=== PATIENT | male | born 1960 | race Caucasian/White ===

== ENCOUNTER 2020-04-26 12:27 | Inpatient (IN) | payer MEDICAID ==
[2020-04-26] VITALS (10 sets, daily range): BP systolic 125–234
[~2020-04-26] VITALS: Ht 177.8 cm; Wt 96.2 kg
--- NOTE | 2020-04-26 12:27 | NUR ---
Patient brought in by ambulance to the ED for a possible overdose, stated she found him on the floor today. Patient is non-verbal at this time, unresponsive to painful or verbal stimuli, breathing is rapid and shallow. Will continue to monitor.
--- NOTE | 2020-04-26 12:27 | NUR ---
RT at bedside suctioning the patient and collecting blood gas.
--- NOTE | 2020-04-26 12:27 | NUR ---
Placed in room 01 . Placed on compliance monitor, blood pressure machine and pulse oximeter. To gown for exam. Side rails up.
--- NOTE | 2020-04-26 12:28 | NUR ---
Dr Martínez at bedside examining patient
--- NOTE | 2020-04-26 12:30 | NUR ---
16 # FR Mccollum catheter with use of sterile technique. Immediate return of 200 cc urine noted. Bedside drainage bag placed below level of bladder. Urine sample collected and sent to lab. Pt tolerated procedure . Patient unable to toilet self.
[2020-04-26] MEDS ORDERED: NACL 0.9% 1,000 ML IV ONE (12:41)
--- NOTE | 2020-04-26 12:41 | NUR ---
Patient is taken to CT via gurney, in stable condition. ED RN at bedside during the procedure.
[2020-04-26] MEDS ORDERED: NALOXONE HCL 2 MG/2 ML SYR IVP ONE (12:45)
--- NOTE | 2020-04-26 12:55 | NUR ---
Patient is back from CT in stable condition.
[2020-04-26 12:57] LABS: BASOPHILS % (AUTO) 0.4 % (0.0-2.0); EOSINOPHILS # (AUTO) 0.1 K/uL (0.0-0.4); EOSINOPHILS % (AUTO) 0.5 % (0.0-4.0); HEMATOCRIT 46.8 % (36-54); HEMOGLOBIN 14.8 g/dL (14.0-18.0); LYMPHOCYTES % (AUTO) 8.3 % (20.5-51.5); MEAN CORPUSCULAR HEMOGLOBIN 29 pg (27-31); MEAN CORPUSCULAR HGB CONC 32 % (32-36); MEAN CORPUSCULAR VOLUME 90 fL (79.0-98.0); MONOCYTES # (AUTO) 0.9 K/uL (0.0-1.0); MONOCYTES % (AUTO) 7.3 % (1.7-9.3); NEUTROPHILS # (AUTO) 10.4 K/uL (1.8-7.7); NEUTROPHILS % (AUTO) 83.5 % (40.0-70.0); PLATELET COUNT (AUTO) 224 K/uL (130-430); RED BLOOD CELL COUNT(AUTO) 5.17 MIL/uL (4.2-6.2); RED CELL DISTRIBUTION WIDTH 16.4 % (9.0-15.0); WHITE BLOOD COUNT (AUTO) 12.4 K/uL (4.8-10.8)
[2020-04-26 13:14] LABS: INR 1.3 (0.80-1.20); PROTHROMBIN TIME 12.7 SECS (9.5-12.5)
[2020-04-26 13:15] LABS: ANION GAP 9 (5-15); CALCIUM 8.2 mg/dL (8.4-11.0); CHLORIDE 103 mmol/L (98-107); CREATININE 2.15 mg/dL (0.55-1.30); GLUCOSE 128 mg/dL (70-99); POTASSIUM 4.6 mmol/L (3.5-5.1); SODIUM SERUM 138 mmol/L (136-145); UREA NITROGEN, BLOOD 43 mg/dL (8-21)
[2020-04-26 13:16] LABS: GFR AFRICAN AMERICAN 40 mL/min (>90)
[2020-04-26 13:22] LABS: BILIRUBIN,URINE 1+ (NEGATIVE); BLOOD, URINE 1+ (NEGATIVE); CLARITY/URINE CLEAR (CLEAR); COLOR,URINE YELLOW (YELLOW); GLUCOSE,URINE NEGATIVE (NEGATIVE); KETONES,URINE NEGATIVE (NEGATIVE); LEUKOCYTE ESTERASE ,URINE NEGATIVE (NEGATIVE); NITRITE, URINE NEGATIVE (NEGATIVE); PH,URINE 5.5 (5.0-8.0); PROTEIN URINE 2+ (NEGATIVE)
[2020-04-26 13:26] LABS: WBC,URINE 0-3 /HPF (0-3)
[2020-04-26 13:27] LABS: BACTERIA,URINE FEW /HPF (None Seen)
[2020-04-26 13:30] LABS: ACETAMINOPHEN < 1 ug/mL (1-30); ALANINE AMINOTRANSFERASE 534 U/L (12-78); ALBUMIN 2.9 g/dL (3.4-4.8); AMYLASE 65 U/L (0-100); ASPARTATE AMINOTRANSFERASE 213 U/L (10-37); LIPASE 200 U/L (73-393); TOTAL BILIRUBIN 2.3 mg/dL (0.0-1.0)
[2020-04-26 13:31] LABS: ALCOHOL, BLOOD < 3 mg/dL (<10)
[2020-04-26 13:32] LABS: BARBITURATE, URINE NEGATIVE (NEG <=200); BENZODIAZEPINE, URINE NEGATIVE (NEG <=150); CANNABINOID, URINE POSITIVE (NEG <=50); COCAINE, URINE NEGATIVE (NEG <=150); METHAMPHETAMINES SCREEN,URINE POSITIVE (NEG <=500); OPIATE, URINE POSITIVE (NEG <=100); PHENCYCLIDINE SCREEN,URINE NEGATIVE (NEG <=25); UR TRICYCLIC ANTIDEPRESSANTS NEGATIVE (NEG <=300); URINE AMPHETAMINE POSITIVE (NEG <=500); URINE METHADONE NEGATIVE (NEG <=200); URINE OXYCODONE SCREEN NEGATIVE (NEG <=100); URINE PROPOXYPHENE SCREEN NEGATIVE (NEG <=300)
--- NOTE | 2020-04-26 13:39 | NUR ---
Spoke with Gia, patient's at [phone]. She stated, patient does not have any home medications, no prior medical history and no surgeries in the past.
[2020-04-26 13:58] LABS: CKMB RELATIVE INDEX 3.1 (0.0-2.9); CREATINE KINASE MB 20.2 ng/mL (0-3.6)
--- NOTE | 2020-04-26 14:09 | NUR ---
Patient's unresponsive to painful or verbal stimuli. Increased respiratory effort noted on Oxygen via NC.
--- NOTE | 2020-04-26 14:32 | NUR ---
security tech at bedside collecting blood specimen as ordered by Dr. Martínez. Patient tolerated the procedure well.
[2020-04-26] MEDS ORDERED: CLOPIDOGREL BISULFATE 75 MG TABLET PO ONE (15:30)
[2020-04-26] MEDS ORDERED: ASPIRIN 81 MG TAB.CHEW PO ONE (15:30)
--- NOTE | 2020-04-26 15:39 | NUR ---
Patient will be admitted to care of Dr. Lou. Admitted to Telemetry. Will go to room 104A. Belongings list completed. Complete and up to date summary report printed. SBAR report to be given at bedside with opportunity for questions.
--- NOTE | 2020-04-26 15:52 | NUR ---
ADMISSION NOTE Received patient from ER via demarco, received report from DEBBY JACKSON. Patient admitted with diagnosis of CHF/ALOC. Patient is unresponsive unable to follow instruction.
--- NOTE | 2020-04-26 15:55 | NUR ---
cardio consult called: for Dr. Kitty Lou, regarding CHF, ordered by Dr. Sharonda Lou, spoke with Diane
--- NOTE | 2020-04-26 15:57 | NUR ---
Neuro consult called: for Dr. Cowart, regarding ALOC, ordered by Dr. Lou, spoke with Dr. Supa Cowart stated he will be in later today or tomorrow
--- NOTE | 2020-04-26 17:45 | NUR ---
Note Received report from admit RN Meghan on pt for continuation of care at 1600. Pt non responsive except for deep stimuli. Pt has O2 on at 2L/nc and Nasal trumpet in right nares. Pt has IV in right AC and left AC - both saline locked. Pt has Mccollum catheter intact and patent - draining well. Pt has been unresponsive throughout shift. Dr Lou was called and notified that pt is foaming at the mouth, RR at 30 and HR at 125. Pt has problems breathing and use of accessory muscles. Pt starting to wake up and very restless and confused in bed. Attempting to go over side rails and pushing staff away. Order for transfer to ICU received and pt was transferred to ICU at this time. Report given to COTTON GIN YARD SUPERVISOR at this time. Order for restraints also received at this time.
--- NOTE | 2020-04-26 17:50 | NUR ---
Transfer to ICU Received report from endorsing RN. Pt noted with foaming at mouth and nasal trumpet in place. Noted pupils PERRLA but with eye deviation to left side then move side to side, unable to track. Pt is able to follow commands and noted to only move left side of body. Afebrile. Placed on 2L O2 via NC. Pt denies pain at this time. IVs in place with IVF. Pt noted with HTN SBP 170s. BLE with redness and impaired skin integrity. No other complaints at this time. Addendum: 04/26/20 at 2054 by Eloina Howard RN Pt also noted with no gag reflex upon oral and nasal suctioning.
--- NOTE | 2020-04-26 17:51 | NUR ---
Richard Nielsen informed regarding patient transfer to ICU
--- NOTE | 2020-04-26 18:00 | NUR ---
Dr. Oh called unit and requests pt to be intubated. Informed ER Dr. Martínez regarding Dr. Oh's request. MDs communicated to each other and state to not intubate the patient while he can follow commands and has O2 saturate above 94%. Dr. Oh made aware of pt's current situation and RN findings. New orders made for ABGs in 1 hr.
[2020-04-26] MEDS ORDERED: FOLIC ACID 1 MG, THIAMINE HCL 100 MG, MAGNESIUM SULFATE 1 GM, MVI 10 ML in NACL 0.9% 1,... IV SCH (18:15)
--- NOTE | 2020-04-26 18:30 | NUR ---
Calls returned from Dr. Cowart and Dr. Lou spoke with smelter charger.
--- NOTE | 2020-04-26 19:20 | NUR ---
Endorsed plan of care to scarrer RN. Pt remains lethargic but able to follow commands. No other signs of distress currently noted.
--- NOTE | 2020-04-26 19:30 | NUR ---
Received patient after report from dayshift nurse. Patient appears agitated, moving L leg and L arm but unable to move right upper and lower extremities. Able to follow simple commands and responding by nodding his head yes. Patient repositioned for comfort. BL AC IV sites patent and fluids infusing to L AC; no signs of infiltration noted. 2 L via Nasal canula in place and tolerating well. Mccollum catheter draining to gravity with yellow cloudy urine. Will continue to monitor patient as per unit protocol.
[2020-04-26] MEDS: 0.45% NACL 1,000 ML IV SCH (20:00)
--- NOTE | 2020-04-26 20:15 | NUR ---
ABG results within normal parameters; no action taken
--- NOTE | 2020-04-26 20:30 | NUR ---
Dr Cowart contacted; orders for stat CT head received; radiology department aware.
[2020-04-26] MEDS ORDERED: LABETALOL 100 MG/ 20ML VIAL IVP PRN (21:00)
--- NOTE | 2020-04-26 21:00 | NUR ---
Going to CT for head study via bed. Portable monitor in place.
[2020-04-26] MEDS ORDERED: LABETALOL 100 MG/ 20ML VIAL ONE (21:09)
--- NOTE | 2020-04-26 21:20 | NUR ---
Back from CT. Patient tolerated well. Connected to wall monitor and repositioned in bed for comfort.
[2020-04-26] MEDS: LORazepam 2 MG/ML VIAL IVP PRN (21:40)
--- NOTE | 2020-04-26 22:15 | NUR ---
DR Shaw BARCENAS NOTIFIED OF THE CT HEAD RESULTS.
--- NOTE | 2020-04-26 23:00 | NUR ---
DR TSANG UPDATED ON PT CONDITION AND ABG RESULTS GIVEN
[2020-04-27] VITALS (31 sets, daily range): BP systolic 129–172
[2020-04-27] MEDS: 0.45% NACL 1,000 ML IV SCH (01:40)
[2020-04-27] MEDS ORDERED: FOLIC ACID 1 MG, MVI 10 ML in NACL 0.9% 1,000 ML IV SCH (07:15)
[2020-04-27] MEDS ORDERED: THIAMINE HCL 100 MG, MAGNESIUM SULFATE 1 GM in NS 100 ML IV SCH (07:15)
--- NOTE | 2020-04-27 07:47 | NUR ---
Opening Notes Pt received from night RN using SBAR
[2020-04-27 08:58] LABS: BASOPHILS # (AUTO) 0.1 K/uL (0.0-0.2); BASOPHILS % (AUTO) 0.6 % (0.0-2.0); HEMATOCRIT 43.5 % (36-54); LYMPHOCYTES # (AUTO) 0.7 K/uL (1.0-5.5); LYMPHOCYTES % (AUTO) 5.8 % (20.5-51.5); MEAN CORPUSCULAR HEMOGLOBIN 29 pg (27-31); MEAN CORPUSCULAR HGB CONC 32 % (32-36); MEAN CORPUSCULAR VOLUME 90 fL (79.0-98.0); MONOCYTES # (AUTO) 0.9 K/uL (0.0-1.0); MONOCYTES % (AUTO) 7.2 % (1.7-9.3); NEUTROPHILS # (AUTO) 10.3 K/uL (1.8-7.7); NEUTROPHILS % (AUTO) 86.4 % (40.0-70.0); PLATELET COUNT (AUTO) 189 K/uL (130-430); RED BLOOD CELL COUNT(AUTO) 4.86 MIL/uL (4.2-6.2); RED CELL DISTRIBUTION WIDTH 16.4 % (9.0-15.0)
[2020-04-27 09:16] LABS: ALBUMIN 2.4 g/dL (3.4-4.8); CREATININE 2.17 mg/dL (0.55-1.30); POTASSIUM 4.9 mmol/L (3.5-5.1); TOTAL BILIRUBIN 2.5 mg/dL (0.0-1.0)
--- NOTE | 2020-04-27 09:44 | NUR ---
Informed Dr. Cowart that MRI is not available today, if needed pt would need to be transferred out. Dr. Cowart is ok with pt getting an MRI on Tuesday.
--- NOTE | 2020-04-27 09:44 | NUR ---
Nutrition Update Orlando scale 13 noted. Pt admitted for congestive heart failure, ALOC Diet:No Diet Order BMI: 30.4 kg/m2 RD to follow per nutrition care standards.
--- NOTE | 2020-04-27 10:45 | NUR ---
1045 ASSISTED INTUBATION BY MD WHITLEY. ETT 7.5 AT LIP LINE. CO2 DETECTOR CHANGED YELLOW. BILATERAL BREATH SOUNDS NOTED. 1050 PT ON VENT, SETTINGS WITH AC14, VT500, PEEP+5, FIO2 50%. VENT TO RED OUTLET AND ALARMS ARE AUDIBLE.
--- NOTE | 2020-04-27 10:45 | NUR ---
Intubation Pt intubated by Dr. Oh, pt placed on vent. will continue to monitor
--- NOTE | 2020-04-27 11:06 | NUR ---
Family Spoke to pt's Gia and provided current update on pts condition, all questions answered at this time.
[2020-04-27] MEDS: PROPOFOL DRIP 100 ML IV PRN (11:40)
--- NOTE | 2020-04-27 11:40 | NUR ---
Witnessed RN initiation of diprivan drip at 5 mcg/kg/min
--- NOTE | 2020-04-27 11:55 | NUR ---
Witness diprivan drip titration to 10 mcg/kg/min
--- NOTE | 2020-04-27 12:00 | NUR ---
1200 TITRATED FIO2 DOWN TO 40% ABG RESULT, PO2 155.6. SPO2 97%, HR 130. WILL CONTINUE TO MONITOR PT.
--- NOTE | 2020-04-27 12:10 | NUR ---
Witness diprivan drip titration to 15 mcg/kg/min
[2020-04-27] MEDS ORDERED: HYDROcodone/ACETAMIN 5-325 MG TAB (NORCO/ VICODIN) NG PRN (13:15)
[2020-04-27] MEDS ORDERED: ONDANSETRON HCL 4 MG/2 ML VIAL IVP PRN (13:15)
[2020-04-27] MEDS ORDERED: D5/0.45 NS 1,000 ML IV SCH (13:15)
[2020-04-27] MEDS ORDERED: LORazepam 2 MG/ML VIAL IVP PRN (13:15)
[2020-04-27] MEDS ORDERED: PANTOPRAZOLE SODIUM 40 MG/VIAL (PROTONIX) IVP ONE (13:30)
--- NOTE | 2020-04-27 13:35 | NUR ---
EEG arcade technician at bedside.
--- NOTE | 2020-04-27 14:21 | NUR ---
New consults paged to Dr. Michael, Dr. Oquendo guest relations receptionist, and Dr. Valdez, spoke with exchange.
[2020-04-27] MEDS: DILTIAZEM HCL 25 MG/5 ML VIAL IVP PRN (15:00)
[2020-04-27] MEDS ORDERED: D5NS 1,000 ML IV SCH (17:00)
--- NOTE | 2020-04-27 17:05 | NUR ---
US semiconductor technician at bedside with pt.
--- NOTE | 2020-04-27 19:20 | NUR ---
Closing Notes Pt endorsed to night RN using SBAR, all questions answered at this time.
--- NOTE | 2020-04-27 19:25 | NUR ---
Opening Note: Received SBAR report from off coming RN for continuity of care. Pt resting in bed without any signs or symptoms of distress. Pt obtunded, responding to painful stimuli. Pt intubated with ETT 7.5, lip line 23, on a ventilator with AC mode 14, FiO2 40%, TV 500, and PEEP of 5. Pt suctioned, and PO care provided. NG tube in place to the L) nare with Vital AF infusing @ 10 ml/hr. Pt has a 20 G PIV to L) AC with D5NS infusing @ 50 ml/hr and propofol gtt @ 15 mcg/min. Mccollum catheter in place and draining to gravity, malena urine. Pt repositioned for comfort and skin breakdown prevention. Will continue to monitor and asses.
[2020-04-27] MEDS: D5NS 1,000 ML IV SCH (20:50)
[2020-04-27] MEDS: PANTOPRAZOLE SODIUM 40 MG/VIAL (PROTONIX) IVP SCH (20:50)
--- NOTE | 2020-04-27 21:45 | NUR ---
DIPRIVAN DRIP TITRATION WITNESSED ABIGAIL JACKSON TITRATE DIPRIVAN DRIP TO 20 MCG/KG/MIN PER ORDERS. WILL CONTINUE TO MONITOR PT.
[2020-04-28] VITALS (34 sets, daily range): BP systolic 100–165
[2020-04-28] MEDS: PROPOFOL DRIP 100 ML IV PRN ×3 (05:27→16:51)
--- NOTE | 2020-04-28 06:31 | NUR ---
DR. Sharonda SMILEY MD MADE AWARE OF PT BLOOD CULTURE POSITIVE FOR GRAM + RODS. PER MD ORDER ID CONSULT WITH DR. ORELLANA AND GIVE 1 DOSE VANCOMYCIN PER PHARMACY.
[2020-04-28 06:52] LABS: BASOPHILS % (AUTO) 0.3 % (0.0-2.0); HEMATOCRIT 44.3 % (36-54); HEMOGLOBIN 13.9 g/dL (14.0-18.0); LYMPHOCYTES # (AUTO) 0.8 K/uL (1.0-5.5); LYMPHOCYTES % (AUTO) 5.5 % (20.5-51.5); MEAN CORPUSCULAR HEMOGLOBIN 28 pg (27-31); MEAN CORPUSCULAR HGB CONC 31 % (32-36); MEAN CORPUSCULAR VOLUME 91 fL (79.0-98.0); MONOCYTES # (AUTO) 1.3 K/uL (0.0-1.0); MONOCYTES % (AUTO) 9.1 % (1.7-9.3); NEUTROPHILS % (AUTO) 85.1 % (40.0-70.0); PLATELET COUNT (AUTO) 147 K/uL (130-430); RED BLOOD CELL COUNT(AUTO) 4.89 MIL/uL (4.2-6.2); RED CELL DISTRIBUTION WIDTH 16.8 % (9.0-15.0); WHITE BLOOD COUNT (AUTO) 14.1 K/uL (4.8-10.8)
[2020-04-28 06:58] LABS: CALCIUM 7.8 mg/dL (8.4-11.0); CREATININE 2.36 mg/dL (0.55-1.30); POTASSIUM 4.8 mmol/L (3.5-5.1); TOTAL BILIRUBIN 1.9 mg/dL (0.0-1.0)
--- NOTE | 2020-04-28 07:20 | NUR ---
Closing note: Endorsed SBAR report to on coming RN for continuity of care.
--- NOTE | 2020-04-28 07:20 | NUR ---
Report received from MANUEL Santiago for continuation of care. Patient is resting in bed at this time. No acute signs or symptoms of distress noted.
--- NOTE | 2020-04-28 07:43 | NUR ---
CONSULT ID CONSULT MD: DR. ANTUNEZ SPOKE TO: SHABBIR DIALED: [phone] ORDERED BY: Sharonda MINOR
--- NOTE | 2020-04-28 08:20 | NUR ---
Dr. Frazier in to see patient.
[2020-04-28] MEDS: PANTOPRAZOLE SODIUM 40 MG/VIAL (PROTONIX) IVP SCH ×2 (08:46→21:06)
[2020-04-28] MEDS: LABETALOL 100 MG/ 20ML VIAL IVP PRN (08:46)
[2020-04-28] MEDS: VANCOMYCIN HCL 1,250 MG in NS 250 ML IV SCH (08:47)
--- NOTE | 2020-04-28 09:34 | NUR ---
nanotechnology technician states patient is too unstable for MRI at this time. He wants it cancelled until patient is stable.
--- NOTE | 2020-04-28 11:55 | NUR ---
Patient's called for update. She was updated and verbalized understanding.
--- NOTE | 2020-04-28 11:56 | NUR ---
SS NOTES: ENTRY LEVEL MANAGER was referred by CM/Nursing to see patient for DCP and possible overdose. ENTRY LEVEL MANAGER phoned spouse, Gia @ [phone] instead. Pt is a 59 y/o male who came in via ED for altered level of consciousness. Pt lives at home with in a one mercedes home with 2 steps to get to the front door. Pt is independent with his ADL's and no DME use. 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 Pt no longer has any source of income, and no unemployment benefit received. Pt does not have any history of mental health, and uses recreational drugs (marijuana and speed) for years. Pt also drinks 1 can of beer/night. If discharged to SNF, family prefers [facility], and no preference on [facility]. ENTRY LEVEL MANAGER will remain available when needed. ENTRY LEVEL MANAGER to provide substance use/unemployment resources.
--- NOTE | 2020-04-28 12:37 | NUR ---
Petr not available. Spoke with pharmacist who stated he will inform tech.
[2020-04-28] MEDS: cefTRIAXone 1 GM in D5W 50 ML IV SCH (12:48)
--- NOTE | 2020-04-28 13:11 | NUR ---
Dietitian Recommendations *Recommend: swallow eval. *Keep EN infusion rate at 40ml. Vital AF 1.2 at 40ml/hr (goal rate), Free Water Flush at 200ml Q6H via NGT Provides: 1152 kcal, 72gm protein and 1579ml fluids daily. Meets: 62% of estimated calorie needs and 96% of estimated protein needs. Please see Nutritional Assessment for details. PAUL, RD
[2020-04-28] MEDS: D5NS 1,000 ML IV SCH (15:28)
--- NOTE | 2020-04-28 19:10 | NUR ---
Report given to MANUEL Bedoya for continuation of care. No signs or symptoms of distress noted.
[2020-04-28] MEDS: MUPIROCIN 2% TOPICAL OINTMENT 22 GM NS SCH (21:06)
[2020-04-29] VITALS (33 sets, daily range): BP systolic 120–180
--- NOTE | 2020-04-29 06:00 | NUR ---
REMAINS ON DIPRIVAN DRIP AT 10 MCG/KG/MIN.TOLERATING TUBE FEEDING.TOLERATING VENT SETTING.VS-STABLE.AFEBRILE
[2020-04-29 06:14] LABS: BASOPHILS # (AUTO) 0.1 K/uL (0.0-0.2); BASOPHILS % (AUTO) 0.6 % (0.0-2.0); EOSINOPHILS # (AUTO) 0.1 K/uL (0.0-0.4); HEMATOCRIT 44.2 % (36-54); HEMOGLOBIN 14.1 g/dL (14.0-18.0); LYMPHOCYTES # (AUTO) 0.5 K/uL (1.0-5.5); LYMPHOCYTES % (AUTO) 4.7 % (20.5-51.5); MEAN CORPUSCULAR HEMOGLOBIN 29 pg (27-31); MEAN CORPUSCULAR HGB CONC 32 % (32-36); MEAN CORPUSCULAR VOLUME 90 fL (79.0-98.0); MONOCYTES # (AUTO) 0.9 K/uL (0.0-1.0); MONOCYTES % (AUTO) 8.4 % (1.7-9.3); NEUTROPHILS # (AUTO) 9.3 K/uL (1.8-7.7); NEUTROPHILS % (AUTO) 85.3 % (40.0-70.0); PLATELET COUNT (AUTO) 126 K/uL (130-430); RED BLOOD CELL COUNT(AUTO) 4.93 MIL/uL (4.2-6.2); RED CELL DISTRIBUTION WIDTH 16.7 % (9.0-15.0); WHITE BLOOD COUNT (AUTO) 10.9 K/uL (4.8-10.8)
[2020-04-29 06:36] LABS: ALBUMIN 1.7 g/dL (3.4-4.8); CALCIUM 7.3 mg/dL (8.4-11.0); CREATININE 1.94 mg/dL (0.55-1.30); PHOSPHORUS 3.6 mg/dL (2.7-4.5); POTASSIUM 4.4 mmol/L (3.5-5.1); TOTAL BILIRUBIN 1.4 mg/dL (0.0-1.0)
--- NOTE | 2020-04-29 07:30 | NUR ---
Received pt to assume care. Pt is sedated on vent and on diprivan at [address] on monitor rate 120. RR 20 with sats 96%. Lungs with crackles bilaterally. Small amount of mercer secretions suctioned from ET. Ng with tube feeding at 50 cc/hr. HOB up. KILLIAN PICC with IVF at 50 cc.hr. Vent settings AC 14/500/40/5. No distress. Mccollum with malena urine in bag. Will continue to monitor. Small sores with yellow pus noted on lower legs. Feet lifted off bed on pillows.
[2020-04-29 07:38] LABS: ERYTHROCYTE SEDIMENTATION RATE 4 MM/HR (0-15)
--- NOTE | 2020-04-29 08:10 | NUR ---
Dr. Frazier in to see pt. Orders left. Diprivan turned down to 5 mcgs.
--- NOTE | 2020-04-29 09:20 | NUR ---
RT NOTES ABG RESULTS REPORTED TO RN ADRIANNA. ALSO MADE AWARE THAT AIR LEAK WITH ETT CUFF. WILL CONTINUE MONITORING.
[2020-04-29 10:14] LABS: HEPATITIS A AB, IgM Negative (Negative); HEPATITIS B CORE AB, IgM Negative (Negative); HEPATITIS B SURFACE AG Negative (Negative)
[2020-04-29] MEDS: PANTOPRAZOLE SODIUM 40 MG/VIAL (PROTONIX) IVP SCH ×2 (10:58→21:27)
[2020-04-29] MEDS: VANCOMYCIN HCL 1,250 MG in NS 250 ML IV SCH (11:01)
[2020-04-29] MEDS: D5NS 1,000 ML IV SCH (11:02)
--- NOTE | 2020-04-29 11:55 | NUR ---
Urine in mistry bag noted to be lo/ red in color with sediment. Waiting for Dr. Lou to round to tell him.
[2020-04-29] MEDS: cefTRIAXone 1 GM in D5W 50 ML IV SCH (12:14)
[2020-04-29] MEDS: MUPIROCIN 2% TOPICAL OINTMENT 22 GM NS SCH ×2 (12:28→21:28)
[2020-04-29] MEDS: DILTIAZEM HCL 25 MG/5 ML VIAL IVP PRN (12:28)
--- NOTE | 2020-04-29 13:30 | NUR ---
Pt is tachypneic on vent with RR 38. HR 130's. 02 sats 95%. Diprivan increased to 10 mcgs. Will continue to monitor pt.
[2020-04-29] MEDS: PROPOFOL DRIP 100 ML IV PRN (14:20)
--- NOTE | 2020-04-29 15:00 | NUR ---
Call out to Dr. Lou to report bloody urine in bag.
--- NOTE | 2020-04-29 17:00 | NUR ---
Dr. Kitty Lou called in to inquire about pt. He said he is not covering for Dr. Dyana Lou and that he would be in to see the pt after the office.
--- NOTE | 2020-04-29 17:30 | NUR ---
Dr. Lou in to see pt. Informed him about bloody urine with sediment. Orders left for urology consult.
--- NOTE | 2020-04-29 19:10 | NUR ---
Dr. Herrera in to see pt. Irrigated bloody mistry and replaced it with a new one using a #12 cuday. Return of yellow urine. He said mistry was not in the correct spot.
--- NOTE | 2020-04-29 19:30 | NUR ---
Report given to oncoming shift to assume care of the patient.
--- NOTE | 2020-04-29 19:35 | NUR ---
OPENING NOTE: Received SBAR report from off coming RN. Questions were addressed.
[2020-04-29] MEDS: DILTIAZEM HCL 30 MG TABLET PO SCH (21:28)
--- NOTE | 2020-04-29 21:40 | NUR ---
DIPRIVAN TITRATION WITNESSED ABIGAIL JACKSON TITRATE DIPRIVAN DRIP TO 15 MCG/KG/MIN. WILL CONTINUE TO MONITOR.
[2020-04-29] MEDS: HYDROcodone/ACETAMIN 10-325 MG TAB NG PRN (22:27)
[2020-04-30] VITALS (31 sets, daily range): BP systolic 115–183
[2020-04-30] MEDS: PROPOFOL DRIP 100 ML IV PRN ×2 (02:21→21:36)
[2020-04-30] MEDS: D5NS 1,000 ML IV SCH (04:42)
[2020-04-30] MEDS: DILTIAZEM HCL 30 MG TABLET PO SCH ×3 (05:52→20:59)
--- NOTE | 2020-04-30 06:00 | NUR ---
DIPRIVAN TITRATION WITNESSED ABIGAIL JACKSON TITRATE DIPRIVAN DRIP TO 10 MCG/KG/MIN.
--- NOTE | 2020-04-30 06:30 | NUR ---
DIPRIVAN TITRATION WITNESSED ABIGAIL JACKSON TITRATE DIPRIVAN DRIP TO 5 MCG/KG/MIN. WILL CONTINUE TO MONITOR PT.
[2020-04-30 06:37] LABS: BASOPHILS # (AUTO) 0.1 K/uL (0.0-0.2); BASOPHILS % (AUTO) 0.8 % (0.0-2.0); EOSINOPHILS # (AUTO) 0.1 K/uL (0.0-0.4); EOSINOPHILS % (AUTO) 1.1 % (0.0-4.0); HEMATOCRIT 42.6 % (36-54); HEMOGLOBIN 13.6 g/dL (14.0-18.0); LYMPHOCYTES # (AUTO) 0.6 K/uL (1.0-5.5); LYMPHOCYTES % (AUTO) 6.1 % (20.5-51.5); MEAN CORPUSCULAR HEMOGLOBIN 29 pg (27-31); MEAN CORPUSCULAR HGB CONC 32 % (32-36); MEAN CORPUSCULAR VOLUME 90 fL (79.0-98.0); MONOCYTES # (AUTO) 0.7 K/uL (0.0-1.0); MONOCYTES % (AUTO) 7.2 % (1.7-9.3); NEUTROPHILS # (AUTO) 8.4 K/uL (1.8-7.7); NEUTROPHILS % (AUTO) 84.8 % (40.0-70.0); PLATELET COUNT (AUTO) 132 K/uL (130-430); RED BLOOD CELL COUNT(AUTO) 4.74 MIL/uL (4.2-6.2); RED CELL DISTRIBUTION WIDTH 16.6 % (9.0-15.0); WHITE BLOOD COUNT (AUTO) 9.9 K/uL (4.8-10.8)
[2020-04-30 06:46] LABS: ALBUMIN 1.6 g/dL (3.4-4.8); C-REACTIVE PROTEIN QUANT 9.2 mg/dL (0-0.5); CALCIUM 7.2 mg/dL (8.4-11.0); CREATININE 1.69 mg/dL (0.55-1.30); PHOSPHORUS 3.9 mg/dL (2.7-4.5); POTASSIUM 4.3 mmol/L (3.5-5.1); TOTAL BILIRUBIN 1.4 mg/dL (0.0-1.0)
--- NOTE | 2020-04-30 07:25 | NUR ---
CLOSING NOTE: Endorsed SBAR report to oncoming RN for continuity of care. Questions were addressed.
--- NOTE | 2020-04-30 08:00 | NUR ---
Opening Notes Patient received in bed at this time sedated and connected to cylinder press operator apprentice with NSR. Patient intubated and on ventilator with settings AC 14, tidal volume 500, FiO2 40%, and PEEP 5 with no signs of distress noted at this time. Patient with left nare NGT receiving tubefeeding. Patient has PICC line receiving fluids and diprivan at 5 mcg/kg/min. Safety precautions enforced.
[2020-04-30 08:29] LABS: ERYTHROCYTE SEDIMENTATION RATE 2 MM/HR (0-15)
[2020-04-30] MEDS: PANTOPRAZOLE SODIUM 40 MG/VIAL (PROTONIX) IVP SCH ×2 (09:30→20:56)
[2020-04-30] MEDS: FUROSEMIDE 20 MG/2 ML VIAL IVP SCH ×2 (09:31→20:58)
[2020-04-30] MEDS: MUPIROCIN 2% TOPICAL OINTMENT 22 GM NS SCH ×2 (09:31→21:14)
--- NOTE | 2020-04-30 10:00 | NUR ---
CHG CHG bath performed and linens changed. Patient tolerated well. No signs of distress noted.
[2020-04-30] MEDS: HYDROcodone/ACETAMIN 10-325 MG TAB NG PRN (10:39)
--- NOTE | 2020-04-30 12:00 | NUR ---
RN Rounds Patient in no signs of distress at this time. Safety precautions enforced.
[2020-04-30] MEDS: VANCOMYCIN HCL 1,250 MG in NS 250 ML IV SCH (12:13)
--- NOTE | 2020-04-30 13:00 | NUR ---
WOUND EVALUATION: Wound Consult received from Dr. Joshua Lou. Thank you Dr. Lou for the consult. Patient received in a [place] Bed with an IsoFlex GISSELLE mattress with low air-loss therapy initiated, intubated, ventilator dependent, sedated. Patient is unable to turn in bed independently. Orlando Score is a 13. Past Medical History: Hypertension, drug abuse. History of tobacco abuse, alcohol use and illicit drug use. Initial physician assessment impression: Acute Respiratory Failure, Altered Level of Consciousness, polysubstance drug overdose, Cerebrovascular Accident, Congestive Heart Failure Exacerbation, elevated troponin, Acute Non-ST Elevation, Myocardial Infarction, right-sided weakness, Leukocytosis, Acute Kidney Injury, Chronic Kidney Disease, Hypocalcemia, Hyperbilirubinemia, Transaminitis, Hypoalbuminemia. Recent Labs: WBC 9.9, RBC 4.74, hemoglobin 13.6, hematocrit 42.6, chloride 109, BUN 41, creatinine 1.69, GFR 44, glucose 143, serum total protein 5.1, albumin 1.6, PT 12.7, INR 1.3, PTT 24.5. Microbiology: MRSA screen results positive. Blood culture results in progress. Endotracheal culture results positive for MRSA.Intrinsic factors that delay wound healing: Congestive Heart Failure, Acute Kidney Injury, Chronic Kidney Disease, Hypoalbuminemia. Extrinsic factors that delay wound healing: Immobility. Wound Assessment: 1. Left Dorsal Foot at Anterior Ankle Joint Line: Chronic wound, present on admission. Wound bed bas 100% brown scab with dry, flaky skin. No odor, no drainage. Elyssa-wound intact. Wound measures 1.4 cm x 1.3 cm. 2. Left Dorsal Foot, distal to site 1: Chronic wound, present on admission. Wound bed bas 100% brown scab with dry, flaky skin. No odor, no drainage. Elyssa-wound intact. Wound measures 1.1 cm x 7.3 cm. Recommend: No dressings needed. Continue to monitor sites qshift. 3. Left Lower Extremity: Erythema with multiple, multiple red lesions, present on admission. No odor, no drainage, no weeping. Culture taken and sent to lab. 4. Right Lower Extremity: Erythema with multiple, multiple red lesions, present on admission. No odor, no drainage, no weeping. Culture taken and sent to lab. Recommend: No dressings needed. Continue to monitor sites qshift. 5. Right Second Toe: Chronic wound, present on admission. Wound bed bas 100% brown scab. No odor, no drainage. Elyssa-wound intact. Wound measures 0.5 cm x 0.3 cm. Recommend: No dressing needed. Continue to monitor site qshift. Also recommend: Reposition patient every 2 hours with pillow support and off-load pressure areas with pillows for pressure re-distribution. Offload, elevate and float bilateral heels with one pillow lengthwise under each extremity at all times. Perform skin care and monitor skin integrity Q shift. Use moisture barrier cream on buttocks and other moisture susceptible areas QID and as needed for soiling. Maintain patient on a low air-loss mattress.
[2020-04-30] MEDS: cefTRIAXone 1 GM in D5W 50 ML IV SCH (13:32)
[2020-04-30] MEDS: LORazepam 2 MG/ML VIAL IVP PRN ×2 (15:44→20:55)
--- NOTE | 2020-04-30 16:00 | NUR ---
RN Rounds Patient in no signs of distress at this time. Safety precautions enforced.
--- NOTE | 2020-04-30 19:00 | NUR ---
PT RECEIVED AND REPORT AT BEDSIDE NO CHANGES IN ASSESSMENT
--- NOTE | 2020-04-30 19:19 | NUR ---
Closing Notes Patient endorsed to night stocker RN using SBAR format. Patient in no signs of distress at this time.
--- NOTE | 2020-04-30 20:55 | NUR ---
PAGED DR. WHITLEY PAGER # [phone]
--- NOTE | 2020-04-30 21:03 | NUR ---
DR. WHTIFIELD PT PLACED BACK ON AC MODE BY RT. MD MADE AWARE OF PT HR 134, SBP 180s, AND PT VERY RESTLESS AND AGITATED ON VENT. PER OKAY TO RESTART DIPRIVAN DRIP AT LOW DOSE. WILL CARRY OUT ORDERED.
[2020-05-01] VITALS (27 sets, daily range): BP systolic 104–180
[2020-05-01] MEDS: D5NS 1,000 ML IV SCH ×2 (02:41→23:00)
[2020-05-01] MEDS: DILTIAZEM HCL 30 MG TABLET PO SCH ×3 (05:37→23:00)
[2020-05-01 05:41] LABS: BASOPHILS # (AUTO) 0.1 K/uL (0.0-0.2); BASOPHILS % (AUTO) 0.5 % (0.0-2.0); EOSINOPHILS # (AUTO) 0.1 K/uL (0.0-0.4); EOSINOPHILS % (AUTO) 1.2 % (0.0-4.0); HEMATOCRIT 45.1 % (36-54); HEMOGLOBIN 14.3 g/dL (14.0-18.0); LYMPHOCYTES # (AUTO) 0.8 K/uL (1.0-5.5); MEAN CORPUSCULAR HEMOGLOBIN 28 pg (27-31); MEAN CORPUSCULAR HGB CONC 32 % (32-36); MEAN CORPUSCULAR VOLUME 90 fL (79.0-98.0); MONOCYTES % (AUTO) 8.9 % (1.7-9.3); NEUTROPHILS # (AUTO) 9.7 K/uL (1.8-7.7); NEUTROPHILS % (AUTO) 82.4 % (40.0-70.0); PLATELET COUNT (AUTO) 145 K/uL (130-430); RED BLOOD CELL COUNT(AUTO) 5.03 MIL/uL (4.2-6.2); RED CELL DISTRIBUTION WIDTH 16.7 % (9.0-15.0); WHITE BLOOD COUNT (AUTO) 11.8 K/uL (4.8-10.8)
[2020-05-01 05:49] LABS: C-REACTIVE PROTEIN QUANT 8.9 mg/dL (0-0.5); CALCIUM 7.2 mg/dL (8.4-11.0); CREATININE 1.45 mg/dL (0.55-1.30); PHOSPHORUS 3.4 mg/dL (2.7-4.5); POTASSIUM 4.2 mmol/L (3.5-5.1)
[2020-05-01 06:54] LABS: ERYTHROCYTE SEDIMENTATION RATE 2 MM/HR (0-15)
--- NOTE | 2020-05-01 08:00 | NUR ---
Opening Notes Patient received in bed connected to monitoring analyst with ST. Patient intubated and on ventilator at this time with settings AC 14, FiO2 40%, tidal volume 500, PEEP 5 breathing evenly and unlabored. Patient with left nare NGT receiving tubefeeding. Patient with SARAY PICC receiving fluids and diprivan at 5 mcg/kg/min. Patient with mistry catheter draining malena-colored urine. Safety and isolation precautions enforced.
[2020-05-01] MEDS: PANTOPRAZOLE SODIUM 40 MG/VIAL (PROTONIX) IVP SCH ×2 (09:15→20:16)
[2020-05-01] MEDS: MUPIROCIN 2% TOPICAL OINTMENT 22 GM NS SCH ×2 (09:16→20:09)
[2020-05-01] MEDS: FUROSEMIDE 20 MG/2 ML VIAL IVP SCH ×2 (09:16→20:16)
--- NOTE | 2020-05-01 09:41 | NUR ---
[address] COLE ORDER. PLACED ON 9L SIMPLE MASK. SAT 95% HR 126 RR 30. RN AWARE. WILL CONT. TO MONITOR.
[2020-05-01] MEDS: DILTIAZEM HCL 25 MG/5 ML VIAL IVP PRN ×2 (10:59→20:16)
[2020-05-01] MEDS: VANCOMYCIN HCL 1,250 MG in NS 250 ML IV SCH (11:21)
[2020-05-01] MEDS: LABETALOL 100 MG/ 20ML VIAL IVP PRN ×3 (12:12→20:15)
[2020-05-01] MEDS: cefTRIAXone 1 GM in D5W 50 ML IV SCH (14:27)
--- NOTE | 2020-05-01 17:25 | NUR ---
Nutrition F/U Admitting Diagnosis CHF, ALOC Medical History Comment: Pt found w/: Acute Respiratory Failure, ALOC, Polysubstance Drug Overdose, CVA, CHF exacerbation, Elevated Troponin, Acute NSTEMI, Right sided Weakness, Leukocytosis, LE, CKD, Hyperbilirubinemia, Transaminitis, Hypoalbuminemia per MD notes. Subjective Information Pt remains on isolation precautions for +MRSA, RD visit deferred for conservation of PPE. Pt is now extubated and on 9L simple mask. Leisure Travel Agent Note (04/30) reviewed, noted chronic wounds to the left dorsal foot, present on admission. RD s/w RN who reports pt is tolerating current TF regimen with no residuals. Current TF regimen meets 72% of lower end of calorie and 120% of protein estimated nutrition needs. Consider decreasing rate to 40ml/hr to better meet nutrition needs. Noted 1xBM on 04/30 and pt w/ +3 pitting edema to the BLE and BUE. Current Diet Order/Nutrition Support Vital AF 1.2 at 50ml/hr (goal rate), FWF 200ml via NGT x 4 days Provides: 1440 calories, 90g of protein, and 1773ml of total fluids Meets: 72% of lower end of calorie and 120% of protein estimated nutrition needs Pertinent Medications Vancomycin, Protonix IV, Zofran, Propofol Pertinent Labs 05/01 Na 141 WNL, K 4.2 WNL, BG 131 H, BUN 40 H, CRE 1.45 H NEW Estimated Energy Expenditure (kcals/day) 2808-1637 kcal/day (25-30kcal/kg based on AdjIBW for critical illness) Estimated Protein Required (g/day) 75gm/day (1gm/kg IBW for Renal Dz predialysis) Estimated Fluid Required (l/day) per MD (CHF) Problem/Etiology/Signs/Symptoms Excessive protein intake r/t current EN regimen AEB protein intake from EN regimen meets 120% of estimated protein needs. (*ongoing) Altered nutrition-related labs r/t renal dysfunction AEB elevated BUN and SCre lab values and Hx of Renal Disease. (*ongoing) Expected Outcomes/Goals Monitor EN support and advancement of diet by ST, intake w/ goal of pt meeting at least 75% of estimated nutritional needs, labs trending WNL, normal GI function, skin integrity/wt maintenance. Dietitian Recommendations *Recommend: swallow eval when medically feasible. *Consider decreasing to Vital AF 1.2 at 40ml/hr (goal rate), Free Water Flush at 200ml Q6H via NGT Provides: 1152 kcal, 72gm protein and 1579ml fluids daily. Meets: 58% of estimated calorie needs and 96% of estimated protein needs. Follow Up High Risk: F/U in 2-3days
--- NOTE | 2020-05-01 17:29 | NUR ---
Dietitian Recommendations *Recommend: swallow eval when medically feasible. *Consider decreasing to Vital AF 1.2 at 40ml/hr (goal rate), Free Water Flush at 200ml Q6H via NGT Provides: 1152 kcal, 72gm protein and 1579ml fluids daily. Meets: 58% of estimated calorie needs and 96% of estimated protein needs. Please see Nutrition F/U for further details. LT, RD
--- NOTE | 2020-05-01 19:30 | NUR ---
Opening Note Received plan of care via sbar from endorsing MANUEL Martínez.
--- NOTE | 2020-05-01 19:44 | NUR ---
Closing Notes Endorsed to facsimile operator RN using SBAR format. No signs of distress noted.
--- NOTE | 2020-05-01 20:20 | NUR ---
Patient observed tachypneic and breathing shallow with periods of apnea. SPO2 94. Patient has mercer colored sputum. Suctioned patient and checked residual and found 10 cc. Auscultated patient and heard rhonchi bilateral upper lobes and diminished lower lobes. RT used nasotracheal suction and suctioned 5 cc of thick pink sputum. Completed ABG 7.359 ph, 42.2 CO2, P02 88.2, HCO3 23.3, BE -2.2. Confirmed placement of NG tube via auscultation verified by [address] Geronimo and provided report. Received orders to stop feeding for now and place patient on Bipap 12/6 backup rate of 16.
[2020-05-01] MEDS: VANCOMYCIN HCL 1,000 MG in NS 250 ML IV SCH (23:01)
[2020-05-02] VITALS (26 sets, daily range): BP systolic 122–183
--- NOTE | 2020-05-02 01:00 | NUR ---
Opening Note Received report from MANUEL Wilder using SBAR approach.
--- NOTE | 2020-05-02 01:15 | NUR ---
Assessment Patient is on BIPAP with settings of IPAP 12 and EPAP 6 with no signs of distress noted at this time. Patient with left nare NGT receiving tubefeeding. Patient has PICC line receiving fluids. Bed locked in lowest position and safety protocols in place. Will continue to monitor the patient.
[2020-05-02] MEDS: DILTIAZEM HCL 30 MG TABLET PO SCH ×3 (05:12→22:02)
[2020-05-02 06:57] LABS: BASOPHILS % (AUTO) 0.3 % (0.0-2.0); EOSINOPHILS % (AUTO) 0.2 % (0.0-4.0); HEMATOCRIT 43.2 % (36-54); HEMOGLOBIN 13.7 g/dL (14.0-18.0); LYMPHOCYTES # (AUTO) 0.7 K/uL (1.0-5.5); LYMPHOCYTES % (AUTO) 6.6 % (20.5-51.5); MEAN CORPUSCULAR HEMOGLOBIN 28 pg (27-31); MEAN CORPUSCULAR HGB CONC 32 % (32-36); MEAN CORPUSCULAR VOLUME 90 fL (79.0-98.0); MONOCYTES # (AUTO) 1.1 K/uL (0.0-1.0); MONOCYTES % (AUTO) 9.6 % (1.7-9.3); NEUTROPHILS # (AUTO) 9.5 K/uL (1.8-7.7); NEUTROPHILS % (AUTO) 83.3 % (40.0-70.0); PLATELET COUNT (AUTO) 160 K/uL (130-430); RED BLOOD CELL COUNT(AUTO) 4.83 MIL/uL (4.2-6.2); RED CELL DISTRIBUTION WIDTH 16.4 % (9.0-15.0); WHITE BLOOD COUNT (AUTO) 11.4 K/uL (4.8-10.8)
[2020-05-02 07:22] LABS: ALBUMIN 1.7 g/dL (3.4-4.8); C-REACTIVE PROTEIN QUANT 7.6 mg/dL (0-0.5); CALCIUM 7.5 mg/dL (8.4-11.0); CREATININE 1.45 mg/dL (0.55-1.30); PHOSPHORUS 3.5 mg/dL (2.7-4.5); TOTAL BILIRUBIN 1.4 mg/dL (0.0-1.0)
--- NOTE | 2020-05-02 07:28 | NUR ---
Closing Note Endorsed report to AM nurse using SBAR approach.
--- NOTE | 2020-05-02 07:40 | NUR ---
Opening Notes Patient received tachypneic with notable use of accessory muscles and difficult to arouse with verbal and tactile stimuli. Patient with increased heart rate, medicated with PRN meds. Safety precautions enforced.
--- NOTE | 2020-05-02 08:00 | NUR ---
MD Rounds Dr. Frazier at bedside for examination. Per MD, patient needs intubation.
[2020-05-02] MEDS: LABETALOL 100 MG/ 20ML VIAL IVP PRN ×2 (08:06→23:06)
--- NOTE | 2020-05-02 08:35 | NUR ---
Intubation Patient intubated at this time by Dr. Frazier with ETT size 8, 23 cm at the lip. Vent settings AC 24, tidal volume 450, FiO2 100%, and PEEP 5. RT and 2 RNs at bedside present.
[2020-05-02] MEDS ORDERED: PROPOFOL DRIP 100 ML IV ONE (09:03)
--- NOTE | 2020-05-02 09:30 | NUR ---
RT Note: 0930 Titrated FiO2 down to 80% per ABG results. MANUEL Martínez notified. Addendum: 05/02/20 at 0957 by Amrita Yeager RT Amended: Links added.
[2020-05-02] MEDS ORDERED: ROCURONIUM BROMIDE 10 MG/ML (ZEMURON) IV ONE (09:42)
[2020-05-02] MEDS: PANTOPRAZOLE SODIUM 40 MG/VIAL (PROTONIX) IVP SCH ×2 (10:10→20:14)
[2020-05-02] MEDS: FUROSEMIDE 20 MG/2 ML VIAL IVP SCH ×2 (10:11→20:15)
[2020-05-02] MEDS: MUPIROCIN 2% TOPICAL OINTMENT 22 GM NS SCH ×2 (10:11→20:15)
[2020-05-02 10:13] LABS: ERYTHROCYTE SEDIMENTATION RATE 6 MM/HR (0-15)
[2020-05-02] MEDS: VANCOMYCIN HCL 1,000 MG in NS 250 ML IV SCH ×2 (10:16→22:02)
--- NOTE | 2020-05-02 11:00 | NUR ---
CHG CHG bath performed and linens changed. Patient tolerated well. Patient repositioned and orally suctioned with thick, white secretions out. Safety and isolation precautions observed.
--- NOTE | 2020-05-02 12:00 | NUR ---
RN Rounds Patient resting in bed at this time, currently being sedated. Patient in no signs of distress.
[2020-05-02] MEDS: cefTRIAXone 1 GM in D5W 50 ML IV SCH (13:33)
--- NOTE | 2020-05-02 16:00 | NUR ---
RN Rounds Patient sedated in bed with no signs of distress noted. Safety and isolation precautions enforced.
[2020-05-02] MEDS: PROPOFOL DRIP 100 ML IV PRN (17:03)
--- NOTE | 2020-05-02 19:37 | NUR ---
Closing Notes Patient endorsed to shift leader RN using SBAR format. No signs of distress noted.
--- NOTE | 2020-05-02 19:38 | NUR ---
Opening Note Received report from AM nurse using SBAR approach.
[2020-05-02] MEDS: D5NS 1,000 ML IV SCH (19:54)
--- NOTE | 2020-05-02 20:20 | NUR ---
Assessment Patient is intubated with settings AC 24 FiO2 80%, Tidal Volume 450 and PEEP 5 with no signs of distress noted at this time. Patient is on Diprivan running at 15 mcg. Patient has a left nare NGT receiving tubefeeding. Patient has PICC line receiving fluids. Bed locked in lowest position and safety protocols in place. Will continue to monitor the patient.
[2020-05-03] VITALS (36 sets, daily range): BP systolic 103–180
[2020-05-03] MEDS: LORazepam 2 MG/ML VIAL IVP PRN ×2 (01:21→06:14)
[2020-05-03] MEDS: LABETALOL 100 MG/ 20ML VIAL IVP PRN ×3 (03:46→23:17)
[2020-05-03] MEDS: PROPOFOL DRIP 100 ML IV PRN (03:58)
[2020-05-03] MEDS: DILTIAZEM HCL 30 MG TABLET PO SCH ×3 (05:09→21:11)
[2020-05-03 06:31] LABS: BASOPHILS # (AUTO) 0.1 K/uL (0.0-0.2); BASOPHILS % (AUTO) 0.7 % (0.0-2.0); EOSINOPHILS # (AUTO) 0.1 K/uL (0.0-0.4); EOSINOPHILS % (AUTO) 0.5 % (0.0-4.0); HEMATOCRIT 44.6 % (36-54); HEMOGLOBIN 14.1 g/dL (14.0-18.0); LYMPHOCYTES # (AUTO) 0.7 K/uL (1.0-5.5); LYMPHOCYTES % (AUTO) 5.2 % (20.5-51.5); MEAN CORPUSCULAR HEMOGLOBIN 29 pg (27-31); MEAN CORPUSCULAR HGB CONC 32 % (32-36); MEAN CORPUSCULAR VOLUME 91 fL (79.0-98.0); MONOCYTES # (AUTO) 1.3 K/uL (0.0-1.0); MONOCYTES % (AUTO) 9.3 % (1.7-9.3); NEUTROPHILS # (AUTO) 11.4 K/uL (1.8-7.7); NEUTROPHILS % (AUTO) 84.3 % (40.0-70.0); PLATELET COUNT (AUTO) 204 K/uL (130-430); RED BLOOD CELL COUNT(AUTO) 4.91 MIL/uL (4.2-6.2); RED CELL DISTRIBUTION WIDTH 16.7 % (9.0-15.0); WHITE BLOOD COUNT (AUTO) 13.5 K/uL (4.8-10.8)
--- NOTE | 2020-05-03 07:25 | NUR ---
Closing Note Endorsed report to AM nurse using SBAR approach.
--- NOTE | 2020-05-03 07:30 | NUR ---
Received report to assume care of patient. Pt unresponsive to stimulus on diprivan at 15 mcgs. Diprivan decreased to [address] on monitor. Pt has an NG with tube feeding at 50 cc/hr and tolerating it. Left arm PICC with diprivan at 10 mcgs and IVF at 50 cc/hr. Pt has a #8 ET at 23 cm lip line and comfortable on vent settings of AC 24/450/80%/p5. Lungs with crackles bilaterally. Suctioned thick mercer secretions from mouth and ET. Extremities swollen and lower legs have sores on them. Legs lifted off bed on pillows. Will continue to monitor.
[2020-05-03] MEDS: PANTOPRAZOLE SODIUM 40 MG/VIAL (PROTONIX) IVP SCH ×2 (08:21→21:10)
[2020-05-03] MEDS: FUROSEMIDE 20 MG/2 ML VIAL IVP SCH ×4 (08:22→21:10)
--- NOTE | 2020-05-03 08:30 | NUR ---
Dr. Frazier in to see pt. Orders left.
[2020-05-03] MEDS: MUPIROCIN 2% TOPICAL OINTMENT 22 GM NS SCH (08:32)
[2020-05-03 08:34] LABS: ERYTHROCYTE SEDIMENTATION RATE 3 MM/HR (0-15)
[2020-05-03 08:59] LABS: ALBUMIN 1.8 g/dL (3.4-4.8); C-REACTIVE PROTEIN QUANT 6.1 mg/dL (0-0.5); CREATININE 1.62 mg/dL (0.55-1.30); POTASSIUM 4.2 mmol/L (3.5-5.1); TOTAL BILIRUBIN 1.1 mg/dL (0.0-1.0)
[2020-05-03] MEDS: VANCOMYCIN HCL 1,000 MG in NS 250 ML IV SCH ×2 (10:51→21:12)
[2020-05-03] MEDS: cefTRIAXone 1 GM in D5W 50 ML IV SCH (12:35)
--- NOTE | 2020-05-03 12:50 | NUR ---
Pt noted to have a run of PVC's on the monitor with spontaneous conversion. Will continue to monitor.
[2020-05-03] MEDS: D5NS 1,000 ML IV SCH (13:37)
--- NOTE | 2020-05-03 14:00 | NUR ---
Dr. Dyana choudhury in to see pt.
--- NOTE | 2020-05-03 18:30 | NUR ---
Pt feels warm and temp 103.5. Tylenol given and an ice pack applied. Repositioned in bed HOB up. Good urine output from lasix. Will continue to monitor.
[2020-05-03] MEDS: ACETAMINOPHEN 325 MG TABLET NG PRN (18:40)
--- NOTE | 2020-05-03 19:30 | NUR ---
Report given to oncoming nurse to assume care of the patient.
--- NOTE | 2020-05-03 19:30 | NUR ---
Opening Note Received report from AM nurse using SBAR approach.
--- NOTE | 2020-05-03 19:30 | NUR ---
Closing Note Received report from [facility] nurse using SBAR approach. Addendum: 05/04/20 at 0756 by Britt Cosme RN Opening Note-wrong title
--- NOTE | 2020-05-03 20:20 | NUR ---
Assessment Patient is intubated with settings AC 24 FiO2 80%, Tidal Volume 450 and PEEP 5 with no signs of distress noted at this time. Patient is on Diprivan running at 10 mcg. Patient has a left nare NGT receiving tubefeeding. Patient has PICC line receiving fluids. Bed locked in lowest position and safety protocols in place. Will continue to monitor the patient.
[2020-05-04] VITALS (37 sets, daily range): BP systolic 113–189
[2020-05-04] MEDS: DILTIAZEM HCL 25 MG/5 ML VIAL IVP PRN ×2 (03:29→07:45)
[2020-05-04] MEDS: DILTIAZEM HCL 30 MG TABLET PO SCH ×3 (05:03→21:36)
--- NOTE | 2020-05-04 07:20 | NUR ---
Closing Note Endorsed report to AM nurse using SBAR approach.
--- NOTE | 2020-05-04 07:30 | NUR ---
Received pt on vent with air hungar. AC 24/450/80%/p5. Lungs diminished bilaterally. Minimal secretions suctioned from lungs. HOB up. Diprivan drip at 10 mcgs. Pt sedated to mcfarland level 4. Skin feels very warm, temp 99.0. Tylenol given. NG tube with tube feeding at 40 cc/hr and tolerating it. LUE PICC in place with IVF at 50cc/hr and diprivan infusing. ST on monitor. Benjamin cath with orange malena urine with sediment in bag. Legs with sores on lower legs. Leg squeezers in place. Feet elevated off bed on pillows. Will continue to monitor.
--- NOTE | 2020-05-04 07:50 | NUR ---
RT NOTES FIO2 to 0.70 per ABG result. RN made aware
--- NOTE | 2020-05-04 08:30 | NUR ---
Dr. Frazier in to see pt. Orders left. Peep will be increased to 10 by RT.
[2020-05-04] MEDS ORDERED: ALBUMIN HUMAN 5% 250 ML IV ONE (09:00)
--- NOTE | 2020-05-04 09:00 | NUR ---
RT NOTES- PEEP 10 INCREASED PEEP TO [address] COLE. RN ADRIANNA MADE AWARE. WILL CONTINUE MONITORING.
--- NOTE | 2020-05-04 09:50 | NUR ---
US chest done at bedside. Thoracentesis ordered as well and per radiologist he will do it tomorrow. Dr. Frazier made aware.
[2020-05-04] MEDS: ACETAMINOPHEN 325 MG TABLET NG PRN (10:11)
[2020-05-04] MEDS: VANCOMYCIN HCL 1,000 MG in NS 250 ML IV SCH ×2 (10:11→23:10)
--- NOTE | 2020-05-04 11:10 | NUR ---
RT NOTES FIO2 to 0.[address] Frazier's titrate O2 order
[2020-05-04] MEDS: cefTRIAXone 1 GM in D5W 50 ML IV SCH (12:16)
[2020-05-04] MEDS: D5NS 1,000 ML IV SCH ×2 (12:18→19:27)
--- NOTE | 2020-05-04 13:45 | NUR ---
Spoke with Dr. Lou, cardiology, and reported elevated HR. Orders for NS bolus 500cc given. IV increased to 100cc/hr as well.
[2020-05-04] MEDS: LABETALOL 100 MG/ 20ML VIAL IVP PRN ×2 (13:58→20:39)
--- NOTE | 2020-05-04 14:15 | NUR ---
Spoke with Dr. Steinberg and reported elevated temp. Orders left for a change in antibiotics.
--- NOTE | 2020-05-04 14:24 | NUR ---
Nutrition F/U Admitting Diagnosis: CHF, ALOC Medical History Comment: Pt found w/: Acute Respiratory Failure, ALOC, Polysubstance Drug Overdose, CVA, CHF exacerbation, Elevated Troponin, Acute NSTEMI, Right sided Weakness, Leukocytosis, LE, CKD, Hyperbilirubinemia, Transaminitis, Hypoalbuminemia per MD notes. *COVID-19 Negative 05/02 Subjective Information Pt remains in ICU, RD visit deferred for conservation of PPE. RD s/w pt's primary RN who reported that propofol is running at 10mcg/kg/min, pt is tolerating EN regimen well and water flush is 100ml Q6H. RN stated that wounds are small that wound care is not necessary. Per EMR review, CXR showed right sided worsening infiltrate and effusion. Plan to wean off vent. Pt w/ spiking fevers. Current EN regimen remains appropriate. Current Diet Order/Nutrition Support: Vital AF 1.2 at 50ml/hr (goal rate), FWF 100ml Q6H via NGT x 7 days Provides: 1440 calories, 90g of protein, and 1373ml of total fluids Meets: 69% of estimated calorie needs and 80% of upper end of estimated protein needs Pertinent Medications Vancomycin, Protonix IV, Zofran, Propofol Pertinent Labs 05/03 WBC 13.5 H, Na 146 H, K 4.2 WNL, BG 145 H, BUN 53 H (trending up), CRE 1.62 H (trending down) Skin Integrity: [place] scale: 13. Wound Specilist note 04/30: +Chronic wound to Left dorsal foot and anterior ankle joint line, Right 2nd toe. NEW Estimated Energy Expenditure (kcals/day) Temperature: 103.5 degrees Fahrenheit/39.72 degrees Celsius, Ve: 8.3 2083 kcal/day (PSU 2009 for critical illness on vent) NEW Estimated Protein Required (g/day) 75-113 gm/day (1-1.5 gm/kg IBW for Renal Dz predialysis and wound healing) Estimated Fluid Required (l/day) per MD (CHF) Problem/Etiology/Signs/Symptoms Altered nutrition-related labs r/t renal dysfunction AEB elevated BUN and SCre lab values and Hx of Renal Disease. (*ongoing) Expected Outcomes/Goals Monitor EN support and intake w/ goal of pt meeting at least 75% of estimated nutritional needs, labs trending WNL, normal GI function, skin integrity/wt maintenance. Dietitian Recommendations *Continue Vital AF 1.2 at 50ml/hr (goal rate), Free Water Flush at 100ml Q6H via NGT Provides: 1440 kcal, 90gm protein and 1373 ml fluids daily. Meets: 69% of estimated calorie needs and 80% of upper end of estimated protein needs. Follow Up High Risk: F/U in 2-3days
--- NOTE | 2020-05-04 14:30 | NUR ---
Urine culture sent to lab.
--- NOTE | 2020-05-04 14:39 | NUR ---
Dietitian Recommendations *Continue Vital AF 1.2 at 50ml/hr (goal rate), Free Water Flush at 100ml Q6H via NGT Provides: 1440 kcal, 90gm protein and 1373 ml fluids daily. Meets: 69% of estimated calorie needs and 80% of upper end of estimated protein needs. Please see Nutrition F/U note for details. LONG TERM, RD
[2020-05-04] MEDS: PANTOPRAZOLE SODIUM 40 MG/VIAL (PROTONIX) IVP SCH ×2 (15:00→20:39)
--- NOTE | 2020-05-04 16:00 | NUR ---
RT NOTES FIO2 to 0.50. Sputum collected per doctor's order via RN.
[2020-05-04] MEDS ORDERED: CEFEPIME 1 GM in D5W 50 ML IV ONE (16:30)
[2020-05-04] MEDS ORDERED: NS 500 ML IV ONE (16:45)
--- NOTE | 2020-05-04 17:20 | NUR ---
Pt had 3 thick brown loose stools back to back. Elyssa care done. Rectal temp 100.7. Cooling mattress in use. WIll continue to monitor.
--- NOTE | 2020-05-04 17:45 | NUR ---
Sputum sample sent to lab. Collected by RT
--- NOTE | 2020-05-04 19:29 | NUR ---
Report given to oncoming staff to assume care of pt.
--- NOTE | 2020-05-04 19:30 | NUR ---
Opening note: Report received from Leanne JACKSON. Assuming care now.
[2020-05-05] VITALS (30 sets, daily range): BP systolic 78–153
--- NOTE | 2020-05-05 02:41 | NUR ---
PAGED DR. SMILEY FOR ORDERS DIALED: [phone] SPOKE TO: MEKHI
[2020-05-05] MEDS: LORazepam 2 MG/ML VIAL IVP PRN ×2 (02:45→16:09)
[2020-05-05] MEDS: DILTIAZEM HCL 25 MG/5 ML VIAL IVP PRN (02:48)
--- NOTE | 2020-05-05 02:50 | NUR ---
Spoke with Dr Cano, notified him of SVT rate of 180 sustained after PRN diltiazem and ativan given. Doctor ordered Levophed to keep MAP>60-70. Second order- once the desired MAP is established, give 20mg IVP Lasix x 1. Order read back and verified.
[2020-05-05] MEDS: D5NS 1,000 ML IV SCH ×2 (03:05→17:47)
[2020-05-05] MEDS ORDERED: NOREPINEPHRINE BITARTRATE 4 MG in D5W 246 ML IV PRN (03:15)
[2020-05-05] MEDS ORDERED: NOREPINEPHRINE 4 MG/4 ML VIAL IV ONE (03:29)
[2020-05-05] MEDS ORDERED: FUROSEMIDE 20 MG/2 ML VIAL IVP ONE (03:30)
[2020-05-05] MEDS: CEFEPIME 1 GM in D5W 50 ML IV SCH ×2 (04:24→16:14)
[2020-05-05] MEDS: DILTIAZEM HCL 30 MG TABLET PO SCH ×3 (06:28→20:55)
[2020-05-05 06:42] LABS: BASOPHILS # (AUTO) 0.1 K/uL (0.0-0.2); BASOPHILS % (AUTO) 0.5 % (0.0-2.0); HEMATOCRIT 46.4 % (36-54); HEMOGLOBIN 14.4 g/dL (14.0-18.0); LYMPHOCYTES # (AUTO) 0.9 K/uL (1.0-5.5); LYMPHOCYTES % (AUTO) 4.1 % (20.5-51.5); MEAN CORPUSCULAR HEMOGLOBIN 28 pg (27-31); MEAN CORPUSCULAR HGB CONC 31 % (32-36); MEAN CORPUSCULAR VOLUME 91 fL (79.0-98.0); MONOCYTES # (AUTO) 1.2 K/uL (0.0-1.0); MONOCYTES % (AUTO) 5.5 % (1.7-9.3); NEUTROPHILS # (AUTO) 19.8 K/uL (1.8-7.7); NEUTROPHILS % (AUTO) 89.9 % (40.0-70.0); PLATELET COUNT (AUTO) 199 K/uL (130-430); RED BLOOD CELL COUNT(AUTO) 5.13 MIL/uL (4.2-6.2); RED CELL DISTRIBUTION WIDTH 16.6 % (9.0-15.0); WHITE BLOOD COUNT (AUTO) 22.1 K/uL (4.8-10.8)
--- NOTE | 2020-05-05 07:15 | NUR ---
Closing note: Report given to Leanne JACKSON. Turning over care at this time.
[2020-05-05 07:25] LABS: ALBUMIN 1.5 g/dL (3.4-4.8); CALCIUM 7.6 mg/dL (8.4-11.0); CREATININE 2.16 mg/dL (0.55-1.30); PHOSPHORUS 3.8 mg/dL (2.7-4.5); POTASSIUM 3.3 mmol/L (3.5-5.1); TOTAL BILIRUBIN 0.9 mg/dL (0.0-1.0)
--- NOTE | 2020-05-05 07:30 | NUR ---
Received pt to assume care. Diprivan at 10 mcgs. IVF 100 cc/hr. HR 180 SVT on monitor. Call out to Dr. Kitty Lou. Pt obtunded at this time. Tolerating tube feeds at 50 cc/hr. Temp 98.7. Diprivan decreased to 5 mcgs. WIll continue to monitor.
[2020-05-05] MEDS ORDERED: ADENOSINE 6MG/2ML VIAL IVP ONE (07:45)
[2020-05-05 07:53] LABS: ERYTHROCYTE SEDIMENTATION RATE 4 MM/HR (0-15)
[2020-05-05] MEDS ORDERED: ADENOSINE 6MG/2ML VIAL ONE ×3 (08:02→10:14)
--- NOTE | 2020-05-05 08:05 | NUR ---
Spoke with Dr. Lou on the phone. Orders left.
[2020-05-05] MEDS: PANTOPRAZOLE SODIUM 40 MG/VIAL (PROTONIX) IVP SCH ×2 (08:21→20:54)
--- NOTE | 2020-05-05 08:35 | NUR ---
Adenosine Pt given adenosine 6 mg IVP once without conversion. Pt remains in aflutter rate 180's. Adenosine 12 mg IVP repeated without conversion. Remains in aflutter raete 180s. 1L NS started infusing wide open.
[2020-05-05] MEDS ORDERED: DILTIAZEM HCL 25 MG/5 ML VIAL IVP ONE (08:45)
--- NOTE | 2020-05-05 09:30 | NUR ---
Right sided thoracentesis done by Dr. Blandon at bedside. Removed 600cc malena fluid and sent to lab for cultures and tests ordered.
[2020-05-05 09:38] LABS: C-REACTIVE PROTEIN QUANT 13.4 mg/dL (0-0.5)
--- NOTE | 2020-05-05 10:00 | NUR ---
Adensoine 6mg IVP repeated with Dr. Lou here at bedside without conversion. Remains A flutter. Adenosine 12 mg IVP without conversion. Remains in aflutter rate 180.
--- NOTE | 2020-05-05 10:10 | NUR ---
Cardioversion Pt cardioverted with 50j one time with conversion to SR rate 90's with a good BP. Dr. Lou present for cardioversion.
[2020-05-05] MEDS: VANCOMYCIN HCL 1,000 MG in NS 250 ML IV SCH (10:48)
[2020-05-05 14:46] LABS: BF APPEARANCE UNSPUN HAZY (CLEAR); BODY FLUID COLOR YELLOW (LT YELLOW); BODY FLUID SOURCE/ TYPE THORACENTESIS; BODY FLUID TOTAL VOLUME 675 mL; EOSINOPHIL, BODY FLUID 0 %; LYMPHOCYTES, BODY FLUID 32 %; MONOCYTES,BODY FLUID 3 %; NEUTROPHIL, BODY FLUID 65 %; RBC, BODY FLUID 10 /uL; SOURCE/TYPE ,BODY FLUID THORACENTESIS; WBC, BODY FLUID 1419 /uL
[2020-05-05] MEDS ORDERED: MIDAZOLAM HCL IN 0.9 % NACL/PF 50 ML IV PRN (16:15)
[2020-05-05] MEDS ORDERED: MORPHINE I.V. DRIP 100 ML IV PRN (16:15)
[2020-05-05] MEDS: PROPOFOL DRIP 100 ML IV PRN (16:21)
[2020-05-05] MEDS ORDERED: AMIODARONE HCL 150 MG in D5W 100 ML IV ONE ×2 (16:30→16:50)
[2020-05-05] MEDS ORDERED: AMIODARONE HCL 900 MG in D5W 482 ML IV SCH (17:00)
--- NOTE | 2020-05-05 18:00 | NUR ---
Propofol turned off and Morphine at 4mg /hr and Versed started at 2mg/hr. Will continue to monitor pt.
[2020-05-05 18:02] LABS: BODY FLUID GLUCOSE 142 mg/dL
[2020-05-05 18:03] LABS: BODY FLUID TOTAL PROTEIN < 2.0 g/dL
--- NOTE | 2020-05-05 18:15 | NUR ---
Pt feels hot. Cooling mattress applied. Temp [address] Dyana Lou and call out to Dr. benjamin.
[2020-05-05] MEDS ORDERED: KCL 20 mEq in 100 mL (PREMIX) 100 ML IV ONE (18:30)
--- NOTE | 2020-05-05 18:36 | NUR ---
PAGED DR. ORELLANA FOR ORDERS DIALED: [phone] SPOKE TO: GINA
--- NOTE | 2020-05-05 19:30 | NUR ---
Opening note: Report received from Leanne JACKSON. Assuming care now.
[2020-05-05] MEDS ORDERED: PIPERACILLIN/TAZO 2.25G/DEX-IS 50 ML IV ONE (20:00)
[2020-05-06] VITALS (37 sets, daily range): BP systolic 99–119
[2020-05-06] MEDS: D5NS 1,000 ML IV SCH ×3 (01:30→20:47)
[2020-05-06] MEDS: PIPERACILLIN/TAZO 2.25G/DEX-IS 50 ML IV SCH ×4 (01:39→20:47)
[2020-05-06] MEDS: ACETAMINOPHEN 325 MG TABLET NG PRN ×3 (01:40→20:47)
[2020-05-06] MEDS: CEFEPIME 1 GM in D5W 50 ML IV SCH (04:12)
[2020-05-06] MEDS: VANCOMYCIN HCL 1,500 MG in NS 250 ML IV SCH (06:04)
[2020-05-06] MEDS: DILTIAZEM HCL 30 MG TABLET PO SCH ×3 (06:07→23:30)
[2020-05-06 06:35] LABS: BASOPHILS # (AUTO) 0.1 K/uL (0.0-0.2); BASOPHILS % (AUTO) 0.3 % (0.0-2.0); EOSINOPHILS % (AUTO) 0.2 % (0.0-4.0); HEMOGLOBIN 13.2 g/dL (14.0-18.0); LYMPHOCYTES # (AUTO) 1.1 K/uL (1.0-5.5); LYMPHOCYTES % (AUTO) 5.9 % (20.5-51.5); MEAN CORPUSCULAR HEMOGLOBIN 28 pg (27-31); MEAN CORPUSCULAR HGB CONC 31 % (32-36); MEAN CORPUSCULAR VOLUME 91 fL (79.0-98.0); MONOCYTES # (AUTO) 0.6 K/uL (0.0-1.0); MONOCYTES % (AUTO) 3.5 % (1.7-9.3); NEUTROPHILS # (AUTO) 16.2 K/uL (1.8-7.7); NEUTROPHILS % (AUTO) 90.1 % (40.0-70.0); PLATELET COUNT (AUTO) 164 K/uL (130-430); RED BLOOD CELL COUNT(AUTO) 4.73 MIL/uL (4.2-6.2); RED CELL DISTRIBUTION WIDTH 17.1 % (9.0-15.0)
--- NOTE | 2020-05-06 07:30 | NUR ---
Received report to assume care of the patient. Pt obtunded and grimaces to pain. #8 ET taped at 23 cm lip line. Comfortable on current vent settings of AC 24/450/40%/10. Suctioned minimal mercer secretions from ET. Lungs with crackles bilaterally. NG with tube feeds at 50 cc/hr and tolerating. Abd soft with bowel sounds. Pt is having diarrhea. Elyssa care done. Left upper arm PICC line with IVF at 100 cc/hr and amiodarone at 0.5mg/hr, morphine at 4 mg/hr and versed at 2 mg/hr. Mccollum cath with malena urine in bag with sediment. SR on monitor. VSS. Feet lifted off bed on pillows. Lower extremities and sores on both legs. Rectal temp 101.7 and cooling mattress applied. Will continue to monitor.
[2020-05-06 08:00] LABS: C-REACTIVE PROTEIN QUANT 10.7 mg/dL (0-0.5); CALCIUM 7.3 mg/dL (8.4-11.0); CREATININE 2.88 mg/dL (0.55-1.30); PHOSPHORUS 3.9 mg/dL (2.7-4.5); POTASSIUM 3.5 mmol/L (3.5-5.1)
[2020-05-06] MEDS: PANTOPRAZOLE SODIUM 40 MG/VIAL (PROTONIX) IVP SCH ×2 (08:06→23:29)
[2020-05-06 08:32] LABS: ERYTHROCYTE SEDIMENTATION RATE 7 MM/HR (0-15)
--- NOTE | 2020-05-06 08:55 | NUR ---
Morphine decreased to 2 mg/hr.
--- NOTE | 2020-05-06 09:30 | NUR ---
Pt had loose stool. Elyssa care done. Turned to right side with pillow support and feet lifted off bed on pillows. Remains SR on monitor.
--- NOTE | 2020-05-06 10:30 | NUR ---
Morphine turned off. Versed at 2 mg/hr. Will continue to monitor.
--- NOTE | 2020-05-06 11:50 | NUR ---
Repositioned to left side. No changes in condition. SR on monitor. Will continue to monitor.
--- NOTE | 2020-05-06 14:30 | NUR ---
Pt incontinent of loose brown stool. Elyssa care done. Pt repositioned in bed with pillow support and heels lifted off bed on pillows. Remains in SR. Morphine remains off and versed decreased to 1 mg.hr. Will continue to monitor.
--- NOTE | 2020-05-06 16:40 | NUR ---
Dr Edmond rounded on pt. Peep decreased to 5 by RT.
--- NOTE | 2020-05-06 17:55 | NUR ---
Pt incontinent of large amount of loose brown stool. Elyssa care done. Versed turned off. Will continue to monitor.
--- NOTE | 2020-05-06 19:15 | NUR ---
Report given to oncoming staff to assume care of pt.
--- NOTE | 2020-05-06 20:00 | NUR ---
ASSESSMENT Pt obtunded, Pt does grimace with noxious stimuli. Pt tolerating current vent settings. PICC line present left upper arm. Dressing dry and intact. NGT left nare irrigated, placement checked, continuous feeding in progress. Mccollum catheter in use, draining malena urine with sediment. Skin over left ankle with dry scab open to air.
--- NOTE | 2020-05-06 21:00 | NUR ---
TEMP Rectal temp 101.9 Tylenol via NGT given.
[2020-05-06] MEDS: AMIODARONE HCL 200 MG TABLET PO SCH (23:31)
[2020-05-07] VITALS (26 sets, daily range): BP systolic 100–144
--- NOTE | 2020-05-07 01:00 | NUR ---
TEMP Rectal temp 101.5, placed ice pack under neck.
[2020-05-07 05:57] LABS: BASOPHILS # (AUTO) 0.1 K/uL (0.0-0.2); BASOPHILS % (AUTO) 0.4 % (0.0-2.0); EOSINOPHILS # (AUTO) 0.3 K/uL (0.0-0.4); EOSINOPHILS % (AUTO) 1.3 % (0.0-4.0); HEMATOCRIT 43.8 % (36-54); HEMOGLOBIN 13.4 g/dL (14.0-18.0); LYMPHOCYTES # (AUTO) 0.6 K/uL (1.0-5.5); LYMPHOCYTES % (AUTO) 2.7 % (20.5-51.5); MEAN CORPUSCULAR HEMOGLOBIN 28 pg (27-31); MEAN CORPUSCULAR HGB CONC 31 % (32-36); MEAN CORPUSCULAR VOLUME 91 fL (79.0-98.0); MONOCYTES # (AUTO) 0.7 K/uL (0.0-1.0); NEUTROPHILS # (AUTO) 20.6 K/uL (1.8-7.7); NEUTROPHILS % (AUTO) 92.6 % (40.0-70.0); PLATELET COUNT (AUTO) 157 K/uL (130-430); RED CELL DISTRIBUTION WIDTH 16.9 % (9.0-15.0); WHITE BLOOD COUNT (AUTO) 22.2 K/uL (4.8-10.8)
[2020-05-07] MEDS: PIPERACILLIN/TAZO 2.25G/DEX-IS 50 ML IV SCH ×3 (06:17→13:10)
[2020-05-07] MEDS: DILTIAZEM HCL 30 MG TABLET PO SCH ×2 (06:22→13:09)
[2020-05-07 07:01] LABS: ALBUMIN 1.3 g/dL (3.4-4.8); CALCIUM 7.4 mg/dL (8.4-11.0); CREATININE 3.31 mg/dL (0.55-1.30); PHOSPHORUS 4.1 mg/dL (2.7-4.5); POTASSIUM 3.9 mmol/L (3.5-5.1); TOTAL BILIRUBIN 0.9 mg/dL (0.0-1.0)
[2020-05-07] MEDS: VANCOMYCIN HCL 1,500 MG in NS 250 ML IV SCH (07:06)
--- NOTE | 2020-05-07 07:25 | NUR ---
Opening Notes Patient received in bed connected to assistance coordinator with NSR. Patient orally intubated with settings AC 24, tidal volume 450, FiO2 40%, and PEEP 7 breathing evenly and unlabored. Patient with SARAY PICC receiving fluids. Patient with NGT receiving tubefeeding. Patient has a mistry catheter draining urine. Safety and isolation precautions enforced.
[2020-05-07] MEDS: D5NS 1,000 ML IV SCH (07:30)
[2020-05-07 08:45] LABS: ERYTHROCYTE SEDIMENTATION RATE 7 MM/HR (0-15)
[2020-05-07] MEDS: PANTOPRAZOLE SODIUM 40 MG/VIAL (PROTONIX) IVP SCH (09:11)
[2020-05-07] MEDS: AMIODARONE HCL 200 MG TABLET PO SCH (09:12)
--- NOTE | 2020-05-07 09:48 | NUR ---
HD/dialysis catheter placement refusal , Gia Ramos, refused hemodialysis and requested patient's code status to be DNR. Will notify Dr. Lou regarding code status.
[2020-05-07] MEDS: ACETAMINOPHEN 325 MG TABLET NG PRN (10:48)
--- NOTE | 2020-05-07 11:33 | NUR ---
RN Update Dr. Wheatley informed regarding patient's refusal of dialysis catheter placement, hemodialysis, and change of code status.
[2020-05-07] MEDS ORDERED: D5/0.45 NS 1,000 ML IV SCH (13:15)
--- NOTE | 2020-05-07 13:30 | NUR ---
RN Rounds Patient provided with bedside care. Patient orally suctioned with thick pink-tinged secretions out. Patient provided with oral care. Patient repositioned. Safety and isolation precautions enforced.
--- NOTE | 2020-05-07 14:23 | NUR ---
Nutrition F/U Admitting Diagnosis: CHF, ALOC Medical History Comment: Pt found w/: Acute Respiratory Failure, ALOC, Polysubstance Drug Overdose, CVA, CHF exacerbation, Elevated Troponin, Acute NSTEMI, Right sided Weakness, Leukocytosis, LE, CKD, Hyperbilirubinemia, Transaminitis, Hypoalbuminemia per MD notes. *COVID-19 Negative 05/02, Negative 05/06 Subjective Information Pt remains in ICU, RD visit deferred for conservation of PPE. RD tried to s/w pt's primary RN, but was told that RN was in pt's room providing care. Per Nephrology, renal function is worse, will place Dionisio cath and start HD. Pt may benefit from Nepro EN formula. Current Diet Order/Nutrition Support: Vital AF 1.2 at 50ml/hr (goal rate), FWF 100ml Q6H via NGT Provides: 1440 calories, 90g of protein, and 1373ml of total fluids Meets: 69% of estimated calorie needs and 80% of upper end of estimated protein needs Pertinent Medications Vancomycin, Protonix IV, Zofran, Propofol Pertinent Labs 05/07 WBC 22.2 H, Na 151 H, K 3.9 WNL, BG 179 H, BUN 102 H (trending up), CRE 3.31 H (trending up) Skin Integrity: [place] scale: 14. Wound Specilist note 04/30: +Chronic wound to Left dorsal foot and anterior ankle joint line, Right 2nd toe. NEW Estimated Energy Expenditure (kcals/day)Temperature:104 degrees Fahrenheit/40 degrees Celsius, Ve:12.8 2394 kcal/day (PSU 2009 for critical illness on vent) NEW Estimated Protein Required (g/day) 90-113 gm/day (1.2-1.5 gm/kg IBW for Renal Dz on dialysis and wound healing) Estimated Fluid Required (l/day) per MD (CHF) Problem/Etiology/Signs/Symptoms Altered nutrition-related labs r/t renal dysfunction AEB elevated BUN and SCre lab values and Hx of Renal Disease and new dialysis. (*modified) Expected Outcomes/Goals Monitor EN support and intake w/ goal of pt meeting at least 75% of estimated nutritional needs, labs trending WNL, normal GI function, skin integrity/wt maintenance. Dietitian Recommendations *Recommend: Nepro at 50ml/hr (goal rate), Onur BID, FWF 100ml Q6H via NGT Provides: 2320 kcal, 102gm protein and 1272 ml fluids daily. Meets: 97% of estimated calorie needs and 90% of upper end of estimated protein needs. Follow Up High Risk: F/U in 2-3days
--- NOTE | 2020-05-07 14:29 | NUR ---
Dietitian Recommendations *Recommend: Nepro at 50ml/hr (goal rate), Onur BID, FWF 100ml Q6H via NGT Provides: 2320 kcal, 102gm protein and 1272 ml fluids daily. Meets: 97% of estimated calorie needs and 90% of upper end of estimated protein needs. Please see nutrition F/U note for details PAUL, RD
--- NOTE | 2020-05-07 17:40 | NUR ---
RN Rounds Patient is intubated at this time. Patient tachypneic with use of accessory muscles. Patient with eyes closed and examined by Dr. Sharonda Lou. Safety and isolation precautions enforced.
--- NOTE | 2020-05-07 17:50 | NUR ---
MD Rounds Dr. Sharonda Lou at bedside for examination and received new orders.
[2020-05-07] MEDS ORDERED: MORPHINE I.V. DRIP 100 ML IV PRN (18:00)
--- NOTE | 2020-05-07 19:07 | NUR ---
RN Update Spoke with regarding seeing patient before terminal extubation. Per , Gia Ramos, she does not want to visit and to proceed with extubation per MD order.
--- NOTE | 2020-05-07 20:00 | NUR ---
REPORT RECEIVED FROM DAY SHIFT NURSE.
--- NOTE | 2020-05-07 20:15 | NUR ---
PT ASSESSED. PT IS LYING IN BED OBTUNDED AND ON VENT VIA ET TUBE. VENT SETTINGS ARE AC 24, TV 450, FIO2 40% AND PEEP 7. OROPHARYNX SUCTIONING DONE, INCLUDING ORAL CARE. NGTF OF VITAL AF 1.2 INFUSING WELL AT 50ML/HR. IVF OF D5 1/2NS INFUSING WELL VIA SARAY PICC AT 50ML/HR. JOSE CATH TO GRAVITY DRAINAGE NOTED WITH CHANDANA COLORED URINE. FALL, CONTACT ISOLATION AND SAFETY PRECAUTIONS ARE IN PLACE.
--- NOTE | 2020-05-07 20:25 | NUR ---
PAGED DR. SHERICE STEWART FOR ORDERS DIALED: [phone] SPOKE TO: HECTOR
--- NOTE | 2020-05-07 20:28 | NUR ---
SPOKE WITH DR. TERRY SMILEY. NEW ORDERS RECEIVED TO STOP ALL MEDICATIONS AND NGT FEEDING. ALSO RECEIVED NEW ORDER TO STOP OXYGEN AFTER EXTUBATION.
[2020-05-07] MEDS ORDERED: COMMUNICATION ORDER XX ONE (20:30)
--- NOTE | 2020-05-07 20:47 | NUR ---
WITNESS Witnessed MANUEL Torre titrate Morphine drip to 2mg/hr.
--- NOTE | 2020-05-07 20:47 | NUR ---
IVF AND NGT FEEDING STOPPED PER MD'S ORDER. MORPHINE DRIP STARTED VIA SARAY PICC AT 2MG/HR (2ML/HR). PT REMAINS OBTUNDED. OROPHARYNGEAL SUCTIONING DONE. COOLING MEASURES CONTINUED.
--- NOTE | 2020-05-07 22:18 | NUR ---
OROPHARYNGEAL SUCTIONING AND EXTUBATION DONE BY RT. MORPHINE DRIP CONTINUED AT 2MG/HR (2ML/HR). PT REMAINS OBTUNDED.
--- NOTE | 2020-05-07 23:05 | NUR ---
WITNESS Witnessed MANUEL Torre titrate Morphine drip to 4mg/hr.
--- NOTE | 2020-05-07 23:05 | NUR ---
HR IN THE 150'S AND PT'S RESPIRATIONS VERY LABORED. MORPHINE DRIP INCREASED TO 4MG/HR (4ML/HR).
--- NOTE | 2020-05-07 23:32 | NUR ---
WITNESS Witnessed MANUEL Torre titrate Morphine drip to 6mg/hr.
--- NOTE | 2020-05-07 23:32 | NUR ---
HR IN THE 150'S AND 160'S. RESPIRATIONS VERY LABORED. MORPHINE DRIP INCREASED TO 6MG/HR (6ML/HR).
[2020-05-08] VITALS: BP_SYST 143
--- NOTE | 2020-05-08 01:05 | NUR ---
PT CONTINUED WITH LABORED BREATHING AND HR IN THE 150'S. MORPHINE DRIP INCREASED TO 8MG/HR (8ML/HR).
--- NOTE | 2020-05-08 01:05 | NUR ---
WITNESS Witnessed MANUEL Torre titrate Morphine drip to 8mg/hr.
--- NOTE | 2020-05-08 01:26 | NUR ---
PT STOPPED BREATHING WITH NO PULSE, RESPIRATIONS OR BP. PT ALSO FLAT LINED ON THE HEART MONITOR. RN AND CHARGE NURSE KINDRA BOTH ASSESSED PT. NO PULSES ( CAROTID, BRACHIAL, FEMORAL OR RADIAL) FELT. PT NOT BREATHING. RN AND CHARGE NURSE PRONOUNCED PT . REGIONAL BUSINESS MANAGER IS IN THE UNIT AND AWARE THAT PT . REGIONAL BUSINESS MANAGER CALLED PT'S AT [phone] AND THERE WAS NO ANSWER. REGIONAL BUSINESS MANAGER LEFT A VOICE MAIL MESSAGE FOR PT'S TO CALL BACK ICU.
--- NOTE | 2020-05-08 02:11 | NUR ---
NOTIFIED OF PT EXPIRATION TERRY SMILEY [phone] SHERICEJASMINYAJAIRA [phone] -SPOKE TO: PLATE DRILLER NYDIA BARCENAS [phone] -SPOKE TO: OFFICE CLOSED/NO EXCHANGE/NO VOICEMAIL GENEVIEVE ORELLANA [phone] SINDI OLSON [phone] -SPOKE TO: IMELDA HOGAN [phone] -SPOKE TO: LEFT VOICEMAIL
--- NOTE | 2020-05-08 02:30 | NUR ---
SENIOR GAME DEVELOPER JANNET CALLED PT'S MULTIPLE TIMES TO INFORM HER OF PT'S EXPIRATION, BUT THERE WAS NO ANSWER.
--- NOTE | 2020-05-08 02:45 | NUR ---
POST MORTEM CARE SARAY PICC WAS REMOVED WITH THE CATHETER INTACT. PRESSURE DRESSING WAS APPLIED TO THE SITE. JOSE CATHETER AND NG TUBE IN LEFT NARE WERE REMOVED INTACT. COMPLETE BED BATH, INCLUDING PAOLA CARE GIVEN. TAGS WITH PT'S IDENTIFICATION WERE ATTACHED TO PT'S TOE, OUTSIDE POST MORTEM BAG AND TO PT BELONGINGS.
--- NOTE | 2020-05-08 04:30 | NUR ---
PT'S BODY WITH ALL HIS BELONGINGS TAKEN TO THE MORGUE BY SECURITY.
--- NOTE | 2020-05-08 11:30 | NUR ---
Social Service Note: [facility] placed call to pt's , Gia ([phone]); SAND BOBBER relayed to pt's that pt has passed; emotional support was provided to pt's . Pt's states that pt wanted to be cremated; Gia states that she will contact [facility] in a hour to provide number for mortuary/cremation society. SAND BOBBER will remain available for support and will follow up with pt's . Addendum: 05/08/20 at 1448 by Yarelis Gambino LCSW [facility] has attempted to contact pt's , Gia ([phone]) at [phone], [phone], [phone] and Gia's cell phone says that the mailbox is full. [facility] will continue to attempt to reach pt's to further discuss mortuary/cremation arrangements. Addendum: 05/08/20 at 1609 by Yarelis Gambino LCSW SAND BOBBER placed call to pt's at [phone] and [phone]; pt's mailbox full. SAND BOBBER placed call to pt's again at 1603 and was able to speak with pt's . Pt's states that she will be calling [facility] ([phone]) to make arrangements for pt. SAND BOBBER will update data warehouse administrator. SAND BOBBER provided emotional support to pt's .
--- NOTE | 2020-05-12 10:03 | NUR ---
Social Service Note: [facility] placed call to [facility] ([phone]) and spoke to Froilan; Froilan states that they are waiting for a signature from pt's . Froilan states that he will call the hospital back when they can retrieve pt. [facility] will update powerhouse attendant. Addendum: 05/12/20 at 1419 by Yarelis Gambino LCSW [facility] has attempted to reach pt's at [phone], [phone], [phone]; the phone call went straight to [facility] which is full, [facility] is unable to leave a message for pt's . [facility] will continue to attempt to reach pt's .
--- NOTE | 2020-05-13 15:22 | NUR ---
Social Service Note: [facility] has attempted to reach pt's several times ([phone]); the phone call goes straight to voice mail and the voice mail is full, there is an option to send a text message with phone number. [facility] contacted [facility] ([phone]) and spoke to Vipin who states that pt's did respond to an email yesterday to [facility] and is in the process of finalizing paperwork. Once paperwork is finalized [facility] will reach out to WOOD GRAINER or house father to arrange for sampler pickup.
--- NOTE | 2020-05-14 11:41 | NUR ---
Social Service Note: LOGGING CREW FOREMAN attempted to reach pt's , phone call goes straight to voice mail. LOGGING CREW FOREMAN spoke with Froilan at [facility] C[employer] who also states that he cannot reach pt's . LOGGING CREW FOREMAN contacted [facility] ([phone]) and asked them to do a welfare check for pt's .
== END 2020-05-08 01:26 | disposition expired | DRG 720 ==
LOC: SED 12:27 → EDBD 15:32 → STU 15:32 → SED 15:39 → STU 16:15 → SIC 17:30
PROVIDERS: ADMIT Preventive Medicine Preventive Medicine/Occupational Environmental Medicine; ATTEND Preventive Medicine Preventive Medicine/Occupational Environmental Medicine
PROC: 0BH17EZ Insertion of Endotracheal Airway into Trachea, Via Natural or Artificial Opening (ICD-10-PCS; 2020-04-27)
PROC: 5A1955Z Respiratory Ventilation, Greater than 96 Consecutive Hours (ICD-10-PCS; 2020-04-27)
PROC: 02HV33Z Insertion of Infusion Device into Superior Vena Cava, Percutaneous Approach (ICD-10-PCS; 2020-04-27)
PROC: B548ZZA Ultrasonography of Superior Vena Cava, Guidance (ICD-10-PCS; 2020-04-27)
PROC: 5A09357 Assistance with Respiratory Ventilation, Less than 24 Consecutive Hours, Continuous Positive Airway Pressure (ICD-10-PCS; 2020-05-01)
PROC: 5A1955Z Respiratory Ventilation, Greater than 96 Consecutive Hours (ICD-10-PCS; principal; 2020-05-02)
PROC: 0BH17EZ Insertion of Endotracheal Airway into Trachea, Via Natural or Artificial Opening (ICD-10-PCS; 2020-05-02)
PROC: 5A2204Z Restoration of Cardiac Rhythm, Single (ICD-10-PCS; 2020-05-05)
PROC: 0W993ZZ Drainage of Right Pleural Cavity, Percutaneous Approach (ICD-10-PCS; 2020-05-05)
DX: A41.2 Sepsis due to unspecified staphylococcus (principal); I63.9 Cerebral infarction, unspecified; I21.4 Non-ST elevation (NSTEMI) myocardial infarction; J96.01 Acute respiratory failure with hypoxia; J69.0 Pneumonitis due to inhalation of food and vomit; R65.21 Severe sepsis with septic shock; G92 Toxic encephalopathy; J91.8 Pleural effusion in other conditions classified elsewhere; Z99.11 Dependence on respirator [ventilator] status; M62.82 Rhabdomyolysis; S37.30XA Unspecified injury of urethra, initial encounter; E83.51 Hypocalcemia; I42.9 Cardiomyopathy, unspecified; E88.09 Other disorders of plasma-protein metabolism, not elsewhere classified; N17.9 Acute kidney failure, unspecified; N18.9 Chronic kidney disease, unspecified; I13.0 Hypertensive heart and chronic kidney disease with heart failure and stage 1 through stage 4 chronic kidney disease, or unspecified chronic kidney disease; B17.9 Acute viral hepatitis, unspecified; K72.90 Hepatic failure, unspecified without coma; L03.119 Cellulitis of unspecified part of limb; F17.200 Nicotine dependence, unspecified, uncomplicated; T40.2X1A Poisoning by other opioids, accidental (unintentional), initial encounter; F12.23 Cannabis dependence with withdrawal; F11.23 Opioid dependence with withdrawal; G81.91 Hemiplegia, unspecified affecting right dominant side; E87.1 Hypo-osmolality and hyponatremia; L02.419 Cutaneous abscess of limb, unspecified; B95.62 Methicillin resistant Staphylococcus aureus infection as the cause of diseases classified elsewhere; B96.89 Other specified bacterial agents as the cause of diseases classified elsewhere; I48.92 Unspecified atrial flutter; E87.0 Hyperosmolality and hypernatremia; I47.1 Supraventricular tachycardia; I48.0 Paroxysmal atrial fibrillation; T43.621A Poisoning by amphetamines, accidental (unintentional), initial encounter; F15.23 Other stimulant dependence with withdrawal; Z20.828 Contact with and (suspected) exposure to other viral communicable diseases; R31.9 Hematuria, unspecified; X58.XXXA Exposure to other specified factors, initial encounter; Y92.238 Other place in hospital as the place of occurrence of the external cause; Y93.89 Activity, other specified; Y99.8 Other external cause status; Y92.89 Other specified places as the place of occurrence of the external cause; Z82.49 Family history of ischemic heart disease and other diseases of the circulatory system; I50.41 Acute combined systolic (congestive) and diastolic (congestive) heart failure
CPT/HCPCS: 32555; 36415; 36600; 70450-TC; 71045; 76604; 76705; 76770; 80048; 80053; 80061; 80074; 80202-TC; 80307; 81000-TC; 82042; 82150-TC; 82550-TC; 82553-TC; 82803-TC; 82947-TC; 82962; 83605; 83690-TC; 83735-TC; 83880; 84100-TC; 84157-TC; 84484; 85025; 85610-TC; 85651-TC; 85730-TC; 86140; 87040-TC; 87070-TC; 87075-TC; 87081; 87086; 87186-TC; 87205-TC; 88108; 88305; 88313; 89051-TC; 89060-TC; 93005; 93306; 94002; 94003; 94640; 94660; 95816; 96361; 96374; 99285; C1729; C1751; C9113; G0480; G0481; G0482; J0153; J0282; J0692; J0696; J1940; J2060; J2270; J2310; J2543; J2704; J3370; J3411; J3475; J3480; J3490; J7030; J7040; J7042; J7050; J7060; P9041; U0003-CS